=== PATIENT | female | born 1960 | race Caucasian/White ===

== ENCOUNTER 2025-03-11 10:01 | Outpatient (OUT) | payer OTHER, SELFPAY ==
--- NOTE | 2025-03-11 10:11 | ECG_ITS ---
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 Measurements Intervals [place] Rate: 58 P: 59 GA: 173 QRS: -20 QRSD: 94 T: 39 QT: 403 QTc: 398 Interpretive Statements SINUS BRADYCARDIA INCOMPLETE RIGHT BUNDLE BRANCH BLOCK [90+ ms QRS DURATION, TERMINAL R IN V1/V2, 40+ ms S IN I/aVL/V4/V5/V6] Compared to ECG 03/27/2019 09:21:37 Incomplete right bundle-branch block now present Electronically Signed On 03-11-2025 20:26:41 EDT by MIKE OLIVEIRA M.D.
[2025-03-11 11:02] LABS: Basophils Percent Auto 0.8 % (0.2-2.0); Eosinophils Absolute Auto 0.1 10^3/uL (0.0-0.7); Eosinophils Percent Auto 2.4 % (0.9-7.0); Hematocrit 39.6 % (36.0-48.0); Hemoglobin 13.5 g/dL (12.0-16.0); Immature Granulocytes Abs Auto 0.02 10^3/uL (0.00-0.03); Immature Granulocytes Pct Auto 0.4 % (0.0-0.5); Lymphocytes Absolute Auto 1.6 10^3/uL (1.2-3.8); Lymphocytes Percent Auto 32.2 % (20.5-60.0); Mean Corpuscular HGB Conc 34.1 g/dL (29.9-35.2); Mean Corpuscular Hemoglobin 31.3 pg (26.7-34.0); Mean Corpuscular Volume 91.9 fL (81.0-99.0); Mean Platelet Volume 10.9 fL (9.5-13.5); Monocytes Absolute Auto 0.4 10^3/uL (0.3-0.8); Monocytes Percent Auto 8.4 % (1.7-12.0); Neutrophils Absolute Auto 2.9 10^3/uL (1.4-6.5); Neutrophils Percent Auto 55.8 % (43.0-75.0); Platelet Count 250 10^3/uL (150-450); Red Blood Count 4.31 10^6/uL (4.20-5.40); White Blood Count 5.1 10^3/uL (4.0-11.0)
[2025-03-11 11:26] LABS: INR 1.01; Partial Thromboplastin Time 24.8 sec (22.3-36.2); Prothrombin Time 10.7 sec (9.0-11.6)
== END 2025-03-11 10:02 | disposition home or self-care (01) ==
LOC: PST 10:01
PROVIDERS: PCP Family Medicine; Visit Provider Otolaryngology
DX: Z01.812 Encounter for preprocedural laboratory examination (principal); Z01.810 Encounter for preprocedural cardiovascular examination; J34.89 Other specified disorders of nose and nasal sinuses
CPT/HCPCS: 85025; 85610; 85730; 93005

== ENCOUNTER 2025-03-21 09:29 | Day surgery (SDC) | payer OTHER, SELFPAY ==
[2025-03-11 10:50] VITALS: BP 153/80; PULSE 86; TEMP 36.6; O2SAT 96; BMI 45.0
[2025-03-21] VITALS (10 sets, daily range): BP systolic 134–158; BP diastolic 67–84; PULSE 66–81; TEMP 35.8–36.3; O2SAT 94–97
--- NOTE | 2025-03-21 | OP_ITS ---
OPERATION DATE: 03/21/2025 PRIMARY CARE PHYSICIAN: Shelly Gomez M.D. SURGEON: Angela Llamas M.D. PREOPERATIVE DIAGNOSIS: Left internal nasal lesion and abnormal nasal examination in the office setting. POSTOPERATIVE DIAGNOSIS: Left internal nasal lesion and deviated nasal septum. PROCEDURE: Removal of left internal nasal lesion and nasal endoscopy. Please note that these are separate and distinct procedures and unrelated to each other. ANESTHESIA: General endotracheal anesthesia. COMPLICATIONS: None. 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 INDICATIONS: This 64-year-old woman presented with an enlarging mass within the left nose, which was causing recurrent epistaxis and nasal obstruction. The above finding was noted in the office. In addition, however, examination of the left nasal cavity, which was limited by the presence of the patient?s mass appeared to show a verrucous lesion of the superior nasal cavity. Therefore, decision was made, after removal of the patient?s mass, to perform an endoscopic examination of the nose, to ensure there was no other significant pathology. PROCEDURE: Patient identified in the holding area and taken back to the OR, where she was placed in the supine position. After induction of general endotracheal anesthesia, the table was turned and the face was draped in a sterile fashion. Lidocaine 1% with 1:100,000 epinephrine was injected around the base of the patient?s mass. Afrin soaked pledgets were then also placed in the nose. After waiting adequate time for hemostasis, the mass was grasped with a forcep, exposing the pedunculated stalk, and then using a sharp scissor, the mass was amputated and removed for pathologic analysis. The base was then cauterized with suction Bovie. Once this was completed, the patient?s nose was suctioned and examined using a 30 degree nasal endoscope. There was no abnormal pathology, in the region that was of concern in the office. Patient did, however, have a fairly septal spur to the left. Patient was then awakened and taken to the recovery room in good condition. [facility]ITAL[facility]
[2025-03-21] MEDS: LACTATED RINGER'S SOLUTION 1,000 ML 50 ML IV (10:07)
[2025-03-21] MEDS: LIDOCAINE HCL 1%-EPINEPHRINE 1:100,000 10 ML MDV INJ (10:35)
[2025-03-21] MEDS: BACITRACIN OINTMENT 28.4 GM TUBE 1 APPLIC TOPICAL (10:45)
[2025-03-21] MEDS: OXYMETAZOLINE HCL 0.05% NASAL SPRAY 30 SPRAY NS (10:45)
--- NOTE | 2025-03-21 11:15 | PC.NURSE ---
1053 Patient arrived to pacu in stable condition.
--- NOTE | 2025-03-21 11:56 | PC.NURSE ---
States throat pain is tolerable
== END 2025-03-21 12:02 | disposition home or self-care (01) ==
PROVIDERS: PCP Family Medicine; Visit Provider Otolaryngology
PROC: (CPT 00160; principal; 2025-03-21 10:30)
DX: D18.09 Hemangioma of other sites (principal); J34.2 Deviated nasal septum; Z90.49 Acquired absence of other specified parts of digestive tract; Z96.653 Presence of artificial knee joint, bilateral; Z98.51 Tubal ligation status; I10 Essential (primary) hypertension; R06.02 Shortness of breath; I47.10 Supraventricular tachycardia, unspecified
CPT/HCPCS: 00160; 30117; 31231; 36415; 88305; J1100; J2250; J2371; J2405; J2704; J3010